=== PATIENT | male | born 1985 | race Caucasian/White ===

== ENCOUNTER 2023-02-10 12:58 | Outpatient (AMB) | payer OTHER, SELFPAY ==
--- NOTE | 2023-02-10 13:44 | HO.SPINEOV ---
Intake Intake Visit Reasons: low back pain Assessment & Plan Assessment & Plan (1) Lumbar disc herniation with radiculopathy: Code(s): M51.16 - Intervertebral disc disorders with radiculopathy, lumbar region Plan Dear colleague Thank you for referring Jose Luis Ledesma to the office today with a chief complaint of severe right leg pain. 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 Since that time he has up to 10/10 pain radiating to his posterior thigh calf to the outside of his right foot. The pain is associated with numbness in the same distribution. He denies weakness. He can only stand for very short periods of time after which she has to lay down to get some relief. He can walk either. He tried an epidural steroid injection without success. PMH: Noncontributory Medications: Gabapentin, ibuprofen and oxycodone Allergies: NKDA Social history: , 2 children. Nonsmoker Physical Exam: Pleasant male in severe distress. He is laying on a stretcher. Straight leg raise positive at 20 degrees with pain radiating down his right leg. There is numbness in the S1 dermatome. The ankle reflexes absent on the right side. He stands with a deviation towards the left side. He walks with a limp when he left the office. Radiological Studies: MRI done at [facility] on 01/25/2023 shows a L5-S1 disc extrusion with a free fragment compressing the right S1 nerve root. There is significant inflammation of the right S1 nerve root. Impression/Plan: This 37-year-old previously healthy male is suffering from an acute radiculopathy caused by a L5-S1 disc herniation compressing the right S1 nerve root. He is disabled, [id number] medications do not really work in injections were not successful. I offered him a lumbar microdiskectomy to relieve him from his pain aline. I described the procedure possible complications and he wants to proceed. I added a tumor scheduled for 02/23/2023. Thank you for allowing me to participate in your patients care. total time spent was 50 minutes in counseling ,coordination of plan, personal review of imaging, surgical decision making and subsequent plan Santiago Giraldo MD, PhD Spine Fellowship Trained Neurosurgeon Director, [facility] Coding Level of Care Code New Pt Level 4 (16905) Diagnoses Lumbar disc herniation with radiculopathy M51.16
== END 2023-02-10 13:48 | disposition home or self-care (01) ==
PROVIDERS: Referring Provider Physical Medicine & Rehabilitation; Visit Provider Neurological Surgery
DX: M51.16 Intervertebral disc disorders with radiculopathy, lumbar region (principal)
CPT/HCPCS: 99204

== ENCOUNTER → 2023-02-10 12:58 | Outpatient (BNVA) | payer OTHER, SELFPAY | PROVIDERS: Referring Provider Physical Medicine & Rehabilitation; Visit Provider Neurological Surgery ==

== ENCOUNTER 2023-02-23 09:55 | Day surgery (SDC) | payer OTHER, SELFPAY ==
[2023-02-18 11:11] VITALS: BMI 25.8
--- NOTE | 2023-02-19 08:57 | P.CONAN_ITS ---
Documented by User: Teresa Lopez NP 02/19/23 08:57 HPI - Anesthesia Eval Consult details Narrative: 37yo M for Right L5-S1 Microlumbar discectomy Otherwise healthy [facility] Active Problems Active Problems: All Active Problems (Updated 02/18/23 @ 10:55 by Emma Ramírez RN) Lumbar disc herniation with radiculopathy (Acute) Past Medical History Medical History History of abdominal hernia Numbness Surgical History Surgical History Hx of hernia repair Social History Social History Are you a primary vocational childcare teacher to a significant other at home: No Do you presently have visiting nurse or other home services: No Patient Tobacco Use Status: Former Tobacco user Use of substances other than those prescribed or required for medical reasons: No Advance Directives: No Advance Directives Information Provided: Yes Advance Directives on File: No Recently lost weight without trying: No Eating poorly because of decreased appetite: No Nutrition Risks: No Nutritional Risk Poor oral hygiene: Yes (loose right upper bridge) Meds Allergies Allergy/AdvReac Type Severity Reaction Status Date / Time No Known Allergies Allergy Verified 02/23/23 10:10 Home Medications Medication Instructions Recorded Confirmed Last Taken Type ibuprofen 600 mg tablet 600 mg PO Q6H PRN Pain 02/18/23 02/23/23 02/19/23 His tory oxycodone 10 mg tablet 10 mg PO TID PRN Pain 02/18/23 02/18/23 Unknown History gabapentin 300 mg capsule 300 mg PO 02/23/23 02/22/23 23:00 History Exam Height,Weight and Vital Signs: Height 6 ft Weight 86.183 kg Assessment and Plan Assessment Anesthesia Assessment: Chart Reviewed Documented by User: Radha Blancas MD 02/23/23 10:54 [facility] Active Problems Active Problems: All Active Problems (Updated 02/23/23@ 10:46 by Radha Blancas MD) Lumbar disc herniation with radiculopathy (Acute) Past Medical History Medical History History of abdominal hernia Numbness Family History Family history of problems with anesthesia: No Surgical History Surgical History Hx of hernia repair History of Problems with Anesthesia: No Social History Social History Are you a primary vocational childcare teacher to a significant other at home: No Do you presently have visiting nurse or other home services: No Patient Tobacco Use Status: Former Tobacco user Use of substances other than those prescribed or required for medical reasons: No Advance Directives: No Advance Directives Information Provided: Yes Advance Directives on File: No Recently lost weight without trying: No Eating poorly because of decreased appetite: No Nutrition Risks: No Nutritional Risk Poor oral hygiene: Yes (loose right upper bridge) Meds Allergies Allergy/AdvReac Type Severity Reaction Status Date / Time No Known Allergies Allergy Verified 02/23/23 10:10 Home Medications Medication Instructions Recorded Confirmed Last Taken Type ibuprofen 600 mg tablet 600 mg PO Q6H PRN Pain 02/18/23 02/23/23 02/19/23 History oxycodone 10 mg tablet 10 mg PO TID PRN Pain 02/18/23 02/18/23 Unknown History gabapentin 300 mg capsule 300 mg PO 02/23/23 02/22/23 23:00 History Exam Height,Weight and Vital Signs: Height 6 ft Weight 86.183 kg Vital Signs Temp Pulse Resp BP Pulse Ox O2 Del Method 02/23/23 10:13 98.6 F 95 16 121/76 96 Room Air Airway Mallampati Class: II TM Dist: >3cm Neck ROM: Full Partial: Upper Loose/Missing/Broken Teeth: Yes (Partial top right, denies broken or loose teeth) Heart: RRR Lungs: CTAB Assessment and Plan Assessment Anesthesia Assessment: Anesthesia Plan Discussed Final Anesthetic Review Family History of Problems with Anesthesia: No History of Problems with Anesthesia: No NPO: Yes ASA Class: I Final Preanesthetic Review: No Changes in Pt Med Stat, Meds/Allgs Chart Reviewed, Consent Obtained/Reviewed and Anes Risks/Benef Reviewed Patient Risk: Low Procedure Risk: Low Assessment/Block/Sedation in SS: Assess/Block/Sedation-SS Anesthetic Plan Anesthetic Plan: GA Disposition: Standard PACU
[2023-02-23] VITALS (9 sets, daily range): BP systolic 104–121; BP diastolic 68–83; PULSE 89–100; RESP 14–18; TEMP 36.5–37; O2SAT 95–99; BMI 26.2
--- NOTE | ~2023-02-23 | FL_ITS ---
EXAMINATION: XR FLUOROSCOPY WITH IMAGES CLINICAL INFORMATION: L5-S1 microlumbar discectomy. COMPARISON: None available. TECHNIQUE: Fluoroscopy Supervised By: Dr. Santiago Giraldo. Fluoroscopy Time: 0.0 minutes. Cumulative Dose: 3.44 mGy. DAP: 0.938 Gycm2. Images: 1. FINDINGS: Image demonstrates surgical instrument and probe posterior to the L5 S1 disc space FL/FL guidance in OR IMPRESSION: Fluoroscopy for lumbar spine surgery.
[2023-02-23] MEDS: methocarbamoL 750 MG TABLET PO (10:27)
[2023-02-23] MEDS: Gabapentin 300 MG CAPSULE PO (10:27)
--- NOTE | 2023-02-23 10:31 | MHC.SHP ---
Pre-Procedural Eval Section A Date of Service: 02/23/23 The patient is an INPATIENT: No Changes since office visit: No Cold of Flu in the past 2 weeks, No New Medical Problems, No Changes in Medication and No Patient answered all questions The History & Physical has been completed within 30 days and I have reviewed it.: No Section B Chief Complaint: Intervertebral disc disorders with radiculopathy, Allergies: Allergies Allergy/AdvReac Type Severity Reaction Status Date / Time No Known Allergies Allergy Verified 02/23/23 10:10 Review of Systems Sugical H&P ROS: Negative: Constitution, Cardiovascular, Respiratory, Neurological, Psychiatric, Hem-Onc, Allergic/Immunologic, Gastrointestinal, Genitourinary, Musculoskeletal, Integumentary, Endocrine and Eyes/Ears/Nose/Throat Exam Surgical H&P Exam: Not Evaluated: HEENT, Not Evaluated: Heart, Not Evaluated: Lungs, Not Evaluated: Extremities, Not Evaluated: Abdomen, Not Evaluated: Skin and Not Evaluated: Neurological Plan Diagnosis/Plan: Unchanged right L5-S1 microdiskectomy Time Spent With Patient Time: Total time managing care of this patient today _5___ minutes.
[2023-02-23] MEDS: Lactated Ringers 1,000 ML 100 ML IVCONT (10:35)
--- NOTE | 2023-02-23 12:01 | P.OP_ITS ---
Operative Note Operative Note Date of Service: 02/23/23 Narrative: Preoperative diagnosis: Right lumbar radiculopathy due to disc herniation Postoperative diagnosis: Same Procedure: L5-S1 lumbar microdiskectomy with microscope Surgeon: Santiago Giraldo MD, PhD Housing Assistant Property Manager: MICHELLE Quinonez This 37-year-old male developed an acute right leg pain after lifting weights. Conservative treatment is not helping. An MRI shows an extruded disc fragment compressing the right S1 nerve root. The patient was offered a lumbar microdiskectomy to decompress the nerve root. The procedure complications were explained. The patient was consented. The patient was brought to the operating room and endotracheally intubated. The patient was turned in a prone position on the Jesse frame. Prepping and draping was done followed by time-out. A mid lumbar incision was made followed by release of the paravertebral muscles on the right side to expose the L5-S1 interspace. An intraoperative x-rays obtained to confirm the correct level. The microscope was brought in. A L5 laminotomy was done followed by opening of the flavum ligament. The S1 nerve root was identified and retracted medially to expose the L5-S1 disc space. I could palpate a disc herniation medial from the S1 nerve root, which I carefully removed with a pituitary. The disc space was inspected and any residual disc fragments were removed. This resulted in an excellent decompression of the S1 nerve root. Hemostasis was done. The microscope was removed. Marcaine was injected intramuscularly.The incision was closed in two layers. Steri-Strips used to approximate seizure. An op-site were taken there was used to cover the incision. All sponge and needle counts were correct. Patient was extubated and transported in stable condition to recovery room. this procedure was done with the aid of a physician media assistant who performed the initial exposure until the microscope was brought in and performed the closure of the incision. Anesthesia: General Blood loss: 10 mL Complications: None Specimen: None Surgical time: Disposition: Discharge home
--- NOTE | 2023-02-23 12:09 | PM.DS ---
DS: Providers Provider Date of Service: 02/23/23 Date of discharge: 02/23/23 Primary care physician: Nita Alvarado NP Admitting clinician: Santiago Giraldo DS: Diagnosis Discharge Diagnosis (1) Lumbar disc herniation with radiculopathy: Status: Acute DS: Summary Time Attestation Discharge coordination time: Less than 30 minutes Quality: Safe Use of Opioids Does Pt have an Active Cancer Diagnosis on the Problem List?: No Quality: Stroke Does the patient have a stroke diagnosis?: No Physical Exam Vital Signs: Vital Signs: Last Vital Signs Temp 98.6 F 02/23/23 10:13 Pulse 95 02/23/23 10:13 Resp 16 02/23/23 10:13 BP 121/76 02/23/23 10:13 Pulse Ox 96 02/23/23 10:13 O2 Del Method Room Air 02/23/23 10:13 BMI result Body Mass Index 26.2 Discharge Plan Discharge Patient Disposition: Home, Self-Care Referrals: Nita Alvarado NP [Primary Care Provider] - 1 Week Discharge Medications: Continued ibuprofen 600 mg Tablet 600 mg PO Q6H PRN (Reason: Pain) oxycodone 10 mg tablet 10 mg PO TID PRN (Reason: Pain) gabapentin 300 mg capsule 300 mg PO Discharge Orders: Discharge Order (Routine); Ordered 02/23/23 Ordered By: Scott Denise Diet: Advance to usual diet Activity on Discharge: As tolerated Activity Restrictions/Additional Instructions: After your spinal surgery we ask you to observe the following restrictions/guidelines: Activity: It is normal to feel some discomfort as you increase your activity, but that will improve with time. We ask you avoid heavy lifting or acitivities that cause pain. As a general rule, 8lbs is a safe limit for lifting right after surgery. Walk as much as you feel comfortable but not to exhaustion. You will feel extra tired the first few days after surgery. Stay well hydrated. It is OK to walk up and down stairs You may return to driving when you are off narcotics (such as vicodin, oxycodone, dilaudid, etc), and you are back to normal functional capacity. If you have any concerns please check with office before driving. Return to work is specific to each patient and each surgery, so please speak with your doctor/PA at first follow up. Please bring paperwork such as FMLA at that time if you need it filled out. Medications: For optimum pain control, it is best to start with a combination of 500 mg of Tylenol every 4 hours with 600 mg of Motrin every 8 hours, and use narcotics as needed in between for breakthrough pain. We will give you a short supply of narcotics after surgery (usually one weeks worth). If you need more please call the office but do not use more than prescribed. You will need to give our office 48 hours notice if you need narcotics refilled and we do not fill narcotics on weekends or evenings. If you are on a narcotic, it is a good idea to take a stool softener such as colace or senna to avoid constipation If you take blood thinner such as aspirin, Plavix, Coumadin, Effient, Eliquis etc for conditions such as Afib, DVT, Pulmonary embolus, coronary disease, stents etc please speak with your surgeon about specific details as to when you can resume these medications. You can resume NSAIDs on post op day 1 (eg: Motrin, Naproxen, etc). Follow up: Please call the office, , after surgery to arrange a 3 week follow up for wound check. Wound Care: You may remove your dressing on the first day after surgery. You may leave open to air. Please do not remove the steri strips underneath. they will fall off on their own in one week. IT IS NORMAL FOR THE WOUND TO OOZE OR BE BLOODY FOR A FEW DAYS AFTER SURGERY. IF THIS HAPPENS JUST PLACE NEW DRESSING OVER IT TO AVOID STAINING CLOTHES. You may shower on post op day # 1 We ask that you do not let the water soak the wound. If it does get wet, just towel dry lightly. Please do not scrub your incision or place any type of chemical/ointment on the wound. No tub baths, pools or jacuzzis for one month. If you have any leaking or redness from your wound, or fevers, please call office
== END 2023-02-23 14:07 | disposition home or self-care (01) ==
PROVIDERS: PCP Nurse Practitioner Family; Visit Provider Neurological Surgery
PROC: (CPT 63030; principal; 2023-02-23 11:30)
DX: M51.16 Intervertebral disc disorders with radiculopathy, lumbar region (principal); R20.0 Anesthesia of skin; Z87.891 Personal history of nicotine dependence
CPT/HCPCS: 63030; J0131; J0690; J1100; J1885; J2250; J2371; J2405; J2704; J3010

== ENCOUNTER → 2023-02-23 09:55 | Outpatient (BNV) | payer OTHER, SELFPAY | PROVIDERS: PCP Nurse Practitioner Family; Visit Provider Neurological Surgery | DX: M51.16 Intervertebral disc disorders with radiculopathy, lumbar region (principal) | CPT/HCPCS: 63030; 99499 ==

== ENCOUNTER 2023-03-16 13:31 | Outpatient (AMB) | payer OTHER, SELFPAY ==
--- NOTE | 2023-03-16 13:43 | HO.SPINEOV ---
Intake Intake Visit Reasons: 1st post op Intake Note: Mr. Ledesma is here today for his 1st post-op visit. Finance Clerk Required: No Allergies No Known Allergies Allergy (Verified 02/23/23 10:10) Assessment & Plan Assessment & Plan (1) Lumbar disc herniation with radiculopathy: Code(s): M51.16 - Intervertebral disc disorders with radiculopathy, lumbar region Plan Procedure: Right L5-S1 Microdiskectomy Jose Luis comes in today for his 1st postoperative visit. He reports that he is doing much better than he was preoperatively. He states that the 6-8 weeks leading up to his surgery where the most difficult weeks he has ever had. He has had significant relief of his right-sided shooting pains in his leg. He also reports that the numbness/tingling in his right 4/5 phalanges (F) has resolved. He still reports some mild tenderness in his hamstrings on the right, and slight positional discomfort that waxes and wanes. Overall he is healing very well. We extensively discussed postoperative healing guidelines. We also discussed return to activity. 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 Unfortunately there is no way in which he can work light duty safely at this time. I would like to recommend he remain out of work for 6-8 weeks postoperative to ensure that is disc space can heal over where the resection was done. No new neurological deficits. Patient is able to ambulate well, rises from a seated position without difficulty. Incision site is closed, well healing, with no signs of drainage. We will follow-up with the patient in 6 weeks for his 2nd postoperative visit. Den Giraldo MD,PhD [facility] Coding Level of Care Code Global (25204) Diagnoses Lumbar disc herniation with radiculopathy M51.16
== END 2023-03-16 14:12 | disposition home or self-care (01) ==
PROVIDERS: PCP Nurse Practitioner Family; Visit Provider Physician Assistant
DX: M51.16 Intervertebral disc disorders with radiculopathy, lumbar region (principal)
CPT/HCPCS: 99024

== ENCOUNTER → 2023-03-16 13:31 | Outpatient (BNVA) | payer OTHER, SELFPAY | PROVIDERS: PCP Nurse Practitioner Family; Visit Provider Physician Assistant ==

== ENCOUNTER 2023-04-28 10:59 | Outpatient (AMB) | payer OTHER, SELFPAY ==
--- NOTE | 2023-04-28 11:04 | A.SPINEOV_ITS ---
Intake Intake Visit Reasons: 2nd post op Intake Note: Mr. Ledesma is here today for 2nd post op. Chief Wharfinger Required: No Allergies No Known Allergies Allergy (Verified 02/23/23 10:10) Assessment & Plan Assessment & Plan (1) S/P lumbar microdiscectomy: Code(s): Z98.890 - Other specified postprocedural states Plan Procedure: Right L5-S1 Microdiskectomy Baltazar comes in today for his 2nd postoperative visit. He reports that he has been doing very well since his surgery and states that it has essentially resolved his right-sided lumbar radiculopathy. He reports he has been engaging in light cardiovascular exercise and has been lifting very light weights (7.5 lb) to do slightly waited calisthetics. He feels this has been beneficial for him. 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 I discussed that he will need to return to normal activity in a stepwise approach, starting with very light weights and continued calisthetics. I advised him to not attempt spotting clients that he is working with unless it is very light weight. No new neurological deficits. Sensation grossly intact. Patient is able to ambulate well, rises from a seated position without difficulty. There is no need for continued routine follow-up with Baltazar, he may be discharged as a patient. Den Giraldo MD,PhD [facility] Coding Level of Care Code Global (22864) Diagnoses S/P lumbar microdiscectomy Z98.890
== END 2023-04-28 11:20 | disposition home or self-care (01) ==
PROVIDERS: PCP Nurse Practitioner Family; Visit Provider Physician Assistant
DX: Z98.890 Other specified postprocedural states (principal)
CPT/HCPCS: 99024

== ENCOUNTER → 2023-04-28 10:59 | Outpatient (BNVA) | payer OTHER, SELFPAY | PROVIDERS: PCP Nurse Practitioner Family; Visit Provider Physician Assistant ==